=== PATIENT | male | born 1965 | race Caucasian/White ===

== ENCOUNTER 2016-10-31 00:25 | Emergency (ER) | payer BC ==
[2016-10-31 02:00] VITALS: BP 149/81
[2016-10-31] MEDS ORDERED: Bacitracin Oint 1 GM U/D Packet TOP ONE (02:26)
--- NOTE | 2016-10-31 02:31 | EDM.PDOC ---
ED HPI GENERAL MEDICAL PROBLEM - General Chief Complaint: Laceration Stated Complaint: L EYE LACERATION Time Seen by Provider: 10/31/16 02:10 Source of Information: Reports: Patient, Family (Son) History Limitations: Reports: Intoxication - History of Present Illness INITIAL COMMENTS - FREE TEXT/NARRATIVE: laceration right eye brow; this is a 51 year old male, on vacation at [facility], having fun, slipped and fell against a stone fireplace. no LOC, fall was witnessed by his son. no complaints of head pain, dizziness, nausea, vomiting. just a laceration to right eye brow. Onset: Today Location: Reports: Head, Face Quality: Reports: Ache Improves with: Reports: None Worsens with: Reports: None Associated Symptoms: Reports: No Other Symptoms - Related Data Allergies Allergy/AdvReac Type Severity Reaction Status Date / Time amoxicillin Allergy Hives Verified 10/31/16 01:53 Home Meds: Home Meds Hydrochlorothiazide/Losartan [Hyzaar 100-25 MG] 1 tab PO DAILY 10/31/16 [History ] Loratadine [Claritin] 1 tab PO DAILY 10/31/16 [History] Past Medical History Cardiovascular History: Reports: Hypertension Psychiatric History: Reports: Anxiety Social & Family History - Tobacco Use Smoking Status *Q: Never Smoker Second Hand Smoke Exposure: No - Caffeine Use Caffeine Use: Reports: Soda - Alcohol Use Days Per Week of Alcohol Use: 2 Number of Drinks Per Day: 4 Total Drinks Per Week: 8 - Recreational Drug Use Recreational Drug Use: No - Living Situation & Occupation Living situation: Reports: Occupation: Employed (lives in [place], [place], has his own business.) ED ROS GENERAL - Review of Systems Review Of Systems: See Below Constitutional: Reports: No Symptoms HEENT: Reports: Other (eye brow laceration) Respiratory: Reports: No Symptoms Cardiovascular: Reports: No Symptoms Endocrine: Reports: No Symptoms GI/Abdominal: Reports: No Symptoms : Reports: No Symptoms Musculoskeletal: Reports: No Symptoms Skin: Reports: No Symptoms Neurological: Reports: No Symptoms Psychiatric: Reports: No Symptoms Hematologic/Lymphatic: Reports: No Symptoms Immunologic: Reports: No Symptoms ED EXAM, SKIN/RASH Exam: See Below Exam Limited By: No Limitations General Appearance: Alert, WD/WN, No Apparent Distress Eye Exam: Bilateral Eye: Normal Inspection Ears: Normal External Exam, Normal Canal, Hearing Grossly Normal, Normal TMs Nose: Normal Inspection, Normal Mucosa, No Blood Throat/Mouth: Normal Inspection, Normal Lips, Normal Teeth, Normal Gums, Normal Oropharynx, Normal Voice, No Airway Compromise Head: Atraumatic, Normocephalic Neck: Normal Inspection, Supple, Non-Tender, Full Range of Motion Respiratory/Chest: No Respiratory Distress, Lungs Clear, Normal Breath Sounds Cardiovascular: Regular Rate, Rhythm, No Edema, No Murmur Neurological: Alert, Oriented, No Motor/Sensory Deficits Psychiatric: Normal Affect, Normal Mood Location, Skin: Face Characteristics: Linear Associated features: Warmth, Tenderness, Wwelling Lymphatic: No Adenopathy ED SKIN PROCEDURES - Laceration/Wound Repair Right Face Lac/Wound length In cm: 2 Appearance: Subcutaneous Distal NVT: Neuro & Vascular Intact, No Tendon Injury Anesthetic Type: Local Local Anesthesia - Lidocaine (Xylocaine): 1% Plain Local Anesthetic Volume: 1cc Skin Prep: Chlorhexidine (Hibiciens), Saline Exploration/Debridement/Repair: Wound Explored Suture Size: 4-0 # of Sutures: 5 Suture Type: Prolene Sterile Dressing Applied: Other (apply bacitracin ointment) Tetanus Status Addressed: Yes Complications: No Course - Vital Signs Last Recorded V/S: Last Vital Signs Temp 35.8 C 10/31/16 01:55 Pulse 94 10/31/16 01:55 Resp 16 10/31/16 01:55 BP 149/81 H 10/31/16 01:55 Pulse Ox 92 L 10/31/16 01:55 - Orders/Labs/Meds Orders: Active Orders 24 hr Category Date Time Status Bacitracin [Bacitracin Oint 1 GM] Med 10/31/16 02:26 Once 1 dose TOP ONETIME ONE Meds: Medications Discontinued Medications Generic Name Dose Route Start Last Admin Trade Name Freq PRN Reason Stop Dose Admin Lidocaine HCl 5 ml 10/31/16 02:10 10/31/16 02:23 Xylocaine-Mpf 1% INJECT 10/31/16 02:11 5 ml ONETIME ONE Administration Departure - Departure Time of Disposition: 02:33 Disposition: Home, Self-Care 01 Clinical Impression: Laceration - Discharge Information Instructions: Stitches, Monet, or Adhesive Wound Closure, [id number], Laceration Care, Adult, [id number] Forms: ED Department Discharge Care Plan Goals: laceration repair to right eye brow -[address], have remove in 7 to 10 days -apply bacitracin ointment 2 to 3 times a day for 3 days then keep clean and dry -monitor for signs of infection return to clinic or er for any increased redness, pain, fever, chills, discharge or not improved - Problem List & Annotations (1) Laceration SNOMED Code(s): 943268448 Code(s): [id number] - Status: Acute Priority: High Current Visit: Yes - Problem List Review Problem List Initiated/Reviewed/Updated: Yes - My Orders Last 24 Hours: My Active Orders 10/31/16 02:26 Bacitracin [Bacitracin Oint 1 GM] 1 dose TOP ONETIME ONE - Assessment/Plan Last 24 Hours: My Active Orders 10/31/16 02:26 Bacitracin [Bacitracin Oint 1 GM] 1 dose TOP ONETIME ONE Plan: laceration repair to right eye brow -[address], have remove in 7 to 10 days -apply bacitracin ointment 2 to 3 times a day for 3 days then keep clean and dry -monitor for signs of infection return to clinic or er for any increased redness, pain, fever, chills, discharge or not improved
== END 2016-10-31 02:44 | disposition home or self-care (01) ==
LOC: JP.ED 00:25
DX: S01.111A Laceration without foreign body of right eyelid and periocular area, initial encounter (principal); I10 Essential (primary) hypertension; F41.9 Anxiety disorder, unspecified; Z88.1 Allergy status to other antibiotic agents; Z79.899 Other long term (current) drug therapy; W01.0XXA Fall on same level from slipping, tripping and stumbling without subsequent striking against object, initial encounter
CPT/HCPCS: 12011; 99283-25